=== PATIENT | female | born 1950 | race American Indian/Alaskan Native ===

== ENCOUNTER 2018-07-25 07:23 | Emergency (ER) | payer BC ==
[2018-07-25 07:23] VITALS: BMI 33.9
[2018-07-25 08:09] VITALS: RESP 18; TEMP 98.3
--- NOTE | 2018-07-25 08:14 | C.PDOC ---
History Of Present Illness 68 y/o female with history of Arthritis presents to ED with c/o left hip pain for 2 weeks. Contrary to triage patient c/o right lower rib pain and not right flank pain. Patient states she has been given Gabapentin by Dr. Richards with no improvement and denies fever, chills, sob, nausea, vomiting or any other complaints at this time. Time Seen by Provider: 07/25/18 07:44 Chief Complaint (Nursing): Hip Pain History Per: Patient History/Exam Limitations: no limitations Onset/Duration Of Symptoms: Days Current Symptoms Are (Timing): Still Present Past Medical History Reviewed: Historical Data, Nursing Documentation, Vital Signs Vital Signs: Last Vital Signs Temp 98.3 F 07/25/18 07:30 Pulse 78 07/25/18 09:44 Resp 18 07/25/18 09:44 BP 164/89 H 07/25/18 09:44 Pulse Ox 99 07/25/18 09:44 - Medical History PMH: Colonic Polyps, HTN, Rheumatoid Arthritis Surgical History: Endoscopy - [facility] Procedures CLOSED ENDOSCOPIC BIOPSY OF LARGE INTESTINE (10/01/14) ENDO RECTUM POLYPECTOMY (11/27/02) ENDOSCOPIC BIOPSY OF RECTUM (11/26/04) ESOPHAGOGASTRODUODENOSCOPY [EGD] W/CLOSED BIOPSY (10/01/14) Family History: States: No Known Family Hx - Social History Hx Alcohol Use: No Hx Substance Use: No Review Of Systems Except As Marked, All Systems Reviewed And Found Negative. Musculoskeletal: Positive for: Other (rib pain, hip pain) Physical Exam - Physical Exam Appears: Non-toxic, No Acute Distress Skin: Warm, Dry, No Rash Head: Atraumatic, Normacephalic Eye(s): bilateral: Normal Inspection Oral Mucosa: Moist Neck: Supple Chest: Tenderness (right lower rib worse with movement), No Ecchymosis Cardiovascular: Rhythm Regular Respiratory: Normal Breath Sounds, No Rales, No Rhonchi, No Wheezing Gastrointestinal/Abdominal: Soft, No Tenderness, No Guarding, No Rebound Extremity: Tenderness (lateral left hip, nv intact, no gross swelling ), Capillary Refill (<2 seconds), No Deformity Neurological/Psych: Oriented x3, Normal Speech, Normal Cognition, Normal Motor, Normal Sensation Gait: Steady ED Course And Treatment ECG: Interpreted By Me, Viewed By Me ECG Rhythm: Sinus Rhythm Interpretation Of ECG: Poor R wave progression Rate From EC O2 Sat by Pulse Oximetry: 98 (RA) Pulse Ox Interpretation: Normal Medical Decision Making Medical Decision Making: Assessment: Hip pain/ Chest wall pain Progress: Spoke with Dr. Richards, states he will see patient at 12pm in his office tomorrow cxr - prel reading no active disease will discharge home to follow up with Dr. Richards tomorrow Disposition Discussed With Dr.: Carter Richards Doctor Will See Patient In The: Office Counseled Patient/Family Regarding: Studies Performed, Diagnosis, Need For Followup, Rx Given - Disposition Referrals: Carter Richards MD [Staff Provider] - Disposition: HOME/ ROUTINE Disposition Time: 09:35 Condition: STABLE Additional Instructions: follow up with Dr. Richards tomorrow at 12 pm take pain medications as needed return to hospital if symptoms worsens or progress Prescriptions: Acetaminophen/Codeine [Tylenol/Codeine 300 MG/30 MG] 1 tab PO Q6H PRN #12 tab PRN Reason: Pain, Severe (8-10) Naproxen [Naprosyn] 500 mg PO BID PRN #16 tab PRN Reason: Pain, Moderate (4-7) Instructions: Osteoarthritis (DC), Costochondritis (DC) Forms: General Discharge Instructions, [facility] (Persian), Work Excuse - Clinical Impression Clinical Impression: Hip pain, Chest wall pain - Scribe Statement The provider has reviewed the documentation as recorded by the [place]ow Hammond All medical record entries made by the [place] were at my direction and personally dictated by me. I have reviewed the chart and agree that the record accurately reflects my personal performance of the history, physical exam, medical decision making, and the department course for this patient. I have also personally directed, reviewed, and agree with the discharge instructions and disposition.
[2018-07-25 09:31] LABS: SQUAMOUS EPITHIAL < 1 /hpf (0-5); URINE BACTERIA RARE (<OCC); URINE BILIRUBIN NEGATIVE (NEGATIVE); URINE BLOOD 1+ (NEGATIVE); URINE CLARITY Clear (Clear); URINE COLOR Yellow (YELLOW); URINE GLUCOSE (UA) NORMAL (Normal); URINE LEUKOCYTE ESTERASE TRACE Leu/uL (Negative); URINE PROTEIN NEGATIVE (NEGATIVE); URINE UROBILINOGEN NORMAL mg/dL (0.2-1.0)
[2018-07-25 09:45] VITALS: BP 164/89; PULSE 78
--- NOTE | 2018-07-25 09:49 | RAD ---
Date of service: 07/25/2018 HISTORY: cough COMPARISON: None TECHNIQUE: Chest PA and lateral FINDINGS: LUNGS: No active pulmonary disease. PLEURA: No significant pleural effusion identified. No pneumothorax apparent. CARDIOVASCULAR: Normal. OSSEOUS STRUCTURES: No significant abnormalities. VISUALIZED UPPER ABDOMEN: Normal. OTHER FINDINGS: None. IMPRESSION: No active disease.
--- NOTE | 2018-07-26 17:05 | CARD ---
APPROVED REPORT Date of service: 07/25/2018 EKG Measurement Heart [id number] ID [id number] <Conclusion> Normal sinus rhythm Poor R wave progression - may be normal variant Borderline EKG
[2018-07-28 08:03] VITALS: O2SAT 98
== END 2018-07-25 09:44 | disposition home or self-care (01) ==
LOC: C.ER 07:23
DX: M25.552 Pain in left hip (principal); R07.89 Other chest pain; I10 Essential (primary) hypertension; M06.9 Rheumatoid arthritis, unspecified
CPT/HCPCS: 71046; 81001; 93005; 96372; 99284; J1885